=== PATIENT | female | born 1990 | race Caucasian/White ===

== ENCOUNTER 2017-06-13 15:58 | Emergency (ER) | payer OTHER ==
[2017-06-13 16:06] VITALS: BP 142/95; PULSE 89; TEMP 98.9; BMI 36.9
--- NOTE | 2017-06-13 16:45 | PDOC ---
History of Present Illness - General Chief Complaint: Vaginal Bleeding Stated Complaint: BLEEDING (8 WKS ) Time Seen by Provider: 06/13/17 16:43 History Source: Patient Exam Limitations: No Limitations - History of Present Illness Initial Comments: 06/13/17 17:53 Pt. is a 27 y/o female , who presents to the ED with one day of vaginal bleeding. LMP reported to be 03/21/17. Follows with Elise Oleary. Pt. states that she noticed the blood last night and it continued into this morning. Also admits to cramps and lower abdominal pain. She states that the blood is dark brown in color and is similar to when she had her miscarriage last July at 12 weeks. She is sexually active with one partner. Admits to vaginal bleeding, frequency, urgency. Denies fevers, chills, fatigue, nausea, vomiting, diarrhea, constipation, hematuria. Past History - Travel Traveled outside of the country in the last 30 days: No Close contact w/someone who was outside of country & ill: No - Past Medical History Allergies/Adverse Reactions: Allergies Allergy/AdvReac Type Severity Reaction Status Date / Time No Known Allergies Allergy Verified 06/13/17 16:06 Home Medications: Ambulatory Orders Multivitamin/Iron/Folic Acid [Daily Vitamin Formula-Iron Tab] 1 each PO DAILY # 30 tablet 07/29/16 Nitrofurantoin Monohyd/M-Cryst [Macrobid -] 100 mg PO BID #20 capsule 06/13/17 Anemia: No Asthma: No Cancer: No Cardiac Disorders: No CVA: No COPD: No CHF: No Dementia: No Diabetes: No GI Disorders: No Disorders: No HTN: No Hypercholesterolemia: No Liver Disease: No Seizures: No Thyroid Disease: No Other medical history: denies - Surgical History Abdominal Surgery: No Appendectomy: No Cardiac Surgery: No Cholecystectomy: Yes Lung Surgery: No Neurologic Surgery: No Orthopedic Surgery: No - Reproductive History (#): 4 Para: 3 Cervical CA: No Dysfunctional Uterine Bleeding: No Ectopic : No Endometrial CA: No Polycystic Ovaries: No Therapeutic (s) & number: No Tubal Ligation: No Spontaneous : 0 - Suicide/Smoking/Psychosocial Hx Smoking Status: No Smoking History: Never smoked Have you smoked in the past 12 months: No Number of Cigarettes Smoked Daily: 0 Information on smoking cessation initiated: No Hx Alcohol Use: No Drug/Substance Use Hx: No Substance Use Type: None Hx Substance Use Treatment: No Review of Systems - Review of Systems Able to Perform ROS?: Yes Is the patient limited Vietnamese proficient: No Constitutional: No: Chills, Fever, Malaise, Weakness Respiratory: No: Cough, Shortness of Breath, Wheezing Cardiac (ROS): Yes: Syncope. No: Chest Pain, Edema, Lightheadedness, Palpitations ABD/GI: Yes: Abdominal cramping. No: Constipated, Nausea, Vomiting : Yes: Dysuria, Frequency, Urgency, Other (Vaginal bleeding) Musculoskeletal: No: Back Pain, Joint Pain, Muscle Pain, Muscle Weakness Integumentary: No: Bruising, Erythema, Pruritus, Rash Neurological: No: Headache, Numbness, Paresthesia, Weakness, Dizziness Psychiatric: No: Anxiety, Depression, Sleep Pattern Change Endocrine: No: Excessive Sweating, Flushing, Intolerance to Cold, Intolerance to Heat Hematologic/Lymphatic: No: Anemia, Blood Clots, Easy Bleeding All Other Systems: Reviewed and Negative *Physical Exam - Vital Signs Last Vital Signs Temp Pulse Resp BP Pulse Ox 98.9 F 89 18 142/95 100 06/13/17 16:04 06/13/17 16:04 06/13/17 16:04 06/13/17 16:04 06/13/17 16:04 - Physical Exam General Appearance: Yes: Nourished, Appropriately Dressed. No: Apparent Distress (Sitting on exam bed breathing easily. AAOx3) HEENT: positive: EOMI, BESSY, Normal ENT Inspection, Normal Voice, Symmetrical, TMs Normal, Pharynx Normal Neck: positive: Trachea midline, Supple. negative: Tender, Rigid Respiratory/Chest: positive: Lungs Clear, Normal Breath Sounds. negative: Chest Tender, Respiratory Distress, Accessory Muscle Use Cardiovascular: positive: Regular Rhythm, Regular Rate, S1, S2 (present). negative: Edema, Murmur Female Pelvic Exam: positive: normal external exam, vaginal bleeding (Bleeding in the vault and ). negative: cervical os closed (cervical os is open with passing of blood clots present on exam.), CMT, adnexal tenderness Gastrointestinal/Abdominal: positive: Normal Bowel Sounds, Tender (TTP of the LLQ and RLQ), Flat, Soft. negative: Organomegaly, Distended Extremity: positive: Normal Capillary Refill, Normal Inspection, Normal Range of Motion Integumentary: positive: Normal Color, Dry, Warm Neurologic: positive: ash collector II-XII NML intact, Fully Oriented, Alert, Normal Mood/ Affect, Normal Response, Motor Strength 12/24 ED Treatment Course - LABORATORY CBC & Chemistry Diagram: 06/13/17 17:18 06/13/17 17:18 Medical Decision Making - Medical Decision Making 06/13/17 17:54 Pt. is a 27 y/o female , currently 8-12 weeks based on LMP who presents to the ED c/o vaginal bleeding x1 day. Based on exam most likely DDx is spontaneous as the cervical os is open and passing clots at this time. Explained to pt. exam findings and how she is most likely having a miscarriage. Other DDx include UTI, hematuria. Pt is denying pain at this time. Pt is concerned about her RBC count as she needed a blood transfusion following her last miscarriage 1. CBC, CMP, Type and Screen, Beta Hcg UA, UC 2. Transvaginal US 3. Re-evaluate 06/13/17 18:23 RBC's with normal limits. Hemoglobin of 13. UA shows gross hematuria with a WBC count of over 100. Pt. with UTI as well as vaginal bleeding and will need treatment. 06/13/17 19:00 Pt. is currently in US. Sign out given to ELBA Chow, waiting for US report and dispo. *DC/Admit/Observation/Transfer Diagnosis at time of Disposition: Incomplete miscarriage UTI (urinary tract infection) Qualifiers: Urinary tract infection type: acute cystitis Hematuria presence: with hematuria Qualified Code(s): N30.01 - Acute cystitis with hematuria - Discharge Dispostion Disposition: HOME - Prescriptions Prescriptions: Nitrofurantoin Monohyd/M-Cryst [Macrobid -] 100 mg PO BID #20 capsule - Referrals Referrals: Raj Rehman MD [Staff Physician] - Call tomorrow Jessica Kramer [Primary Care Provider] - - Patient Instructions Printed Discharge Instructions: DI for Urinary Tract Infection (UTI) Additional Instructions: drink plenty of fluids. take macrobid as ordered. your beta hcg level was 7609. you need to repeat this in 2 days. return immediately to the emergency room if you are soaking through 2 pads/ hour, severe abdominal pain fever.
[2017-06-13 17:31] LABS: BASOPHIL 0.4 % (0-2.0); EOSINOPHIL 0.8 % (0-4.5); MCH 29.1 pg (25.7-33.7); MCHC 33.6 g/dl (32.0-36.0); MEAN CELL VOLUME 86.7 fl (80-96); MEAN PLT VOLUME 10.7 fl (7.5-11.1); NEUTROPHILS 72.2 % (42.8-82.8); PLATELET COUNT 186 K/MM3 (134-434); RDW 13.9 % (11.6-15.6); WHITE BLOOD COUNT 11.4 K/mm3 (4.0-10.0)
[2017-06-13 17:34] LABS: URINE APPEARANCE CLOUDY; URINE BILIRUBIN NEGATIVE (NEGATIVE); URINE BLOOD 3+ (NEGATIVE); URINE COLOR YELLOW; URINE GLUCOSE (UA) NEGATIVE (NEGATIVE); URINE KETONE NEGATIVE (NEGATIVE); URINE NITRITE NEGATIVE (NEGATIVE); URINE UROBILINOGEN NEGATIVE mg/dL (0.2-1.0)
[2017-06-13 17:37] LABS: URINE PROTEIN 1+ (NEGATIVE)
[2017-06-13 17:39] LABS: URINE MUCUS RARE; URINE RBC 1506 /hpf (0-3); URINE WBC 175 /hpf (3-5)
[2017-06-13 17:56] LABS: ALBUMIN 3.9 g/dl (3.4-5.0); ANION GAP 7 (8-16); BILIRUBIN,TOTAL 0.2 mg/dL (0.2-1.0); CALCIUM 9.2 mg/dL (8.5-10.1); CO2 28 mmol/L (21-32); CREATININE 0.6 mg/dL (0.55-1.02); GLUCOSE,RANDOM 102 mg/dL (74-106); SGOT/AST 11 U/L (15-37); SGPT/ALT 20 U/L (12-78); TOT PROT 7.5 g/dl (6.4-8.2)
[2017-06-13 18:11] LABS: ALK PHOS 79 U/L (45-117)
[2017-06-13] MEDS ORDERED: SODIUM CHLORIDE 1,000 ML IV STA (19:30)
--- NOTE | 2017-06-13 19:40 | PDOC ---
*Physical Exam - Vital Signs Last Vital Signs Temp Pulse Resp BP Pulse Ox 98.9 F 89 18 142/95 100 06/13/17 16:04 06/13/17 16:04 06/13/17 16:04 06/13/17 16:04 06/13/17 16:04 ED Treatment Course - LABORATORY CBC & Chemistry Diagram: 06/13/17 17:18 06/13/17 17:18 - ADDITIONAL ORDERS Additional order review: Laboratory Results 06/13/17 06/13/17 06/13/17 17:18 17:18 17:18 Sodium 137 Potassium 4.2 Chloride 102 Carbon Dioxide 28 D Anion Gap 7 L BUN 9 D Creatinine 0.6 Creat Clearance w eGFR > 60 Random Glucose 102 D Calcium 9.2 Total Bilirubin 0.2 D AST 11 L D ALT 20 Alkaline Phosphatase 79 D Total Protein 7.5 D Albumin 3.9 D Beta HCG, Quant 7609.1 Urine Color Yellow Urine Appearance Cloudy Urine pH 6.0 Urine Protein 1+ H Urine Glucose (UA) Negative Urine Ketones Negative Urine Blood 3+ H Urine Nitrite Negative Urine Bilirubin Negative Urine Urobilinogen Negative Urine RBC 1506 Urine WBC 175 Ur Epithelial Cells Moderate Urine Mucus Rare Blood Type O POSITIVE Antibody Screen Negative 06/13/17 17:18 RBC 4.72 D MCV 86.7 MCHC 33.6 RDW 13.9 MPV 10.7 Neutrophils % 72.2 Lymphocytes % 20.1 Monocytes % 6.5 Eosinophils % 0.8 Basophils % 0.4 Medical Decision Making - Medical Decision Making 06/13/17 19:39 pending u/s. likely miscarriage 06/13/17 19:44 U/S + pole with no HRT. speedy hcg ~7000s . will d/c home with strict return precautions. *DC/Admit/Observation/Transfer Diagnosis at time of Disposition: Incomplete miscarriage UTI (urinary tract infection) Qualifiers: Urinary tract infection type: acute cystitis Hematuria presence: with hematuria Qualified Code(s): N30.01 - Acute cystitis with hematuria; N30.01 - Acute cystitis with hematuria - Discharge Dispostion Disposition: HOME - Prescriptions Prescriptions: Nitrofurantoin Monohyd/M-Cryst [Macrobid -] 100 mg PO BID #20 capsule - Referrals Referrals: Jessica Kramer [Primary Care Provider] - Raj Rehman MD [Staff Physician] - Call tomorrow - Patient Instructions Printed Discharge Instructions: DI for Urinary Tract Infection (UTI) Additional Instructions: drink plenty of fluids. take macrobid as ordered. your beta hcg level was 7609. you need to repeat this in 2 days. return immediately to the emergency room if you are soaking through 2 pads/ hour, severe abdominal pain fever.
[2017-06-13 22:34] LABS: URINE LEUK ESTERASE TRACE (NEGATIVE)
== END 2017-06-13 21:03 | disposition home or self-care (01) ==
LOC: JER 15:58
PROC: 3E0337Z Introduction of Electrolytic and Water Balance Substance into Peripheral Vein, Percutaneous Approach (ICD-10-PCS; principal; 2017-06-13)
DX: O26.891 Other specified pregnancy related conditions, first trimester (principal); O03.4 Incomplete spontaneous abortion without complication; O23.11 Infections of bladder in pregnancy, first trimester; N30.91 Cystitis, unspecified with hematuria; Z3A.08 8 weeks gestation of pregnancy
CPT/HCPCS: 36415; 76817-TC; 80053; 81003; 81015; 84702; 85025; 86850; 86900; 86901; 87086; 96360; 99283-25

== ENCOUNTER 2017-06-15 07:01 | Day surgery (SDC) | payer OTHER ==
[2017-06-15 07:12] VITALS: BMI 36.9
[2017-06-15] MEDS ORDERED: SODIUM CHLORIDE 1,000 ML IV STA (07:45)
--- NOTE | 2017-06-15 07:57 | PDOC ---
History of Present Illness <BuffyhenryFarzanaLove - Last Filed: 06/15/17 10:46> - General History Source: Patient - History of Present Illness Timing/Duration: reports: constant Quality: reports: severe <JonathanDedeLeilaMinda Last Filed: 06/15/17 11:12> - General Chief Complaint: Vaginal Bleeding Stated Complaint: REVISIT-VAGINAL BLEEDING Time Seen by Provider: 06/15/17 07:38 Past History <BuffyhenryFarzanaLove - Last Filed: 06/15/17 10:46> - Past Medical History Anemia: No Asthma: No Cancer: No Cardiac Disorders: No CVA: No COPD: No CHF: No Dementia: No Diabetes: No GI Disorders: No Disorders: No HTN: No Hypercholesterolemia: No Liver Disease: No Seizures: No Thyroid Disease: No - Surgical History Abdominal Surgery: No Appendectomy: No Cardiac Surgery: No Cholecystectomy: Yes Lung Surgery: No Neurologic Surgery: No Orthopedic Surgery: No - Reproductive History (#): 4 Para: 3 Cervical CA: No Dysfunctional Uterine Bleeding: No Ectopic : No Endometrial CA: No Polycystic Ovaries: No Therapeutic (s) & number: No Tubal Ligation: No Spontaneous : 0 - Suicide/Smoking/Psychosocial Hx Smoking Status: No Smoking History: Never smoked Have you smoked in the past 12 months: No Number of Cigarettes Smoked Daily: 0 Hx Alcohol Use: No Drug/Substance Use Hx: No Substance Use Type: None Hx Substance Use Treatment: No <Roselle ParkDedeGlen Filed: 06/15/17 11:12> - Past Medical History Allergies/Adverse Reactions: Allergies Allergy/AdvReac Type Severity Reaction Status Date / Time No Known Allergies Allergy Verified 06/15/17 07:12 Home Medications: Ambulatory Orders Multivitamin/Iron/Folic Acid [Daily Vitamin Formula-Iron Tab] 1 each PO DAILY # 30 tablet 07/29/16 Nitrofurantoin Monohyd/M-Cryst [Macrobid -] 100 mg PO BID #20 capsule 06/13/17 Review of Systems - Review of Systems Respiratory: No: Shortness of Breath Cardiac (ROS): Yes: Lightheadedness. No: Chest Pain, Palpitations, Syncope ABD/GI: Yes: Abdominal cramping. No: Nausea, Vomiting <Jarvis CastilloMinda Filed: 06/15/17 11:12> *Physical Exam - Vital Signs Last Vital Signs Temp Pulse Resp BP Pulse Ox 99.0 F 100 H 18 117/80 100 06/15/17 07:09 06/15/17 08:12 06/15/17 08:12 06/15/17 08:12 06/15/17 08:12 <Love Olea - Last Filed: 06/15/17 10:46> - Vital Signs Last Vital Signs Temp Pulse Resp BP Pulse Ox 99.0 F 100 H 20 148/83 99 06/15/17 07:09 06/15/17 07:09 06/15/17 07:09 06/15/17 07:09 06/15/17 07:09 - Physical Exam General Appearance: Yes: Appropriately Dressed, Moderate Distress HEENT: positive: Normal Voice Neck: positive: Supple Respiratory/Chest: negative: Respiratory Distress Female Pelvic Exam: positive: vaginal bleeding (significant brisk vag bleeding w / large clots, unable to assess OS) Gastrointestinal/Abdominal: positive: Normal Bowel Sounds, Tender (minimal lower abd ttp), Soft. negative: Distended Extremity: positive: Normal Inspection Integumentary: positive: Dry, Warm Neurologic: positive: Fully Oriented, Alert, Normal Mood/Affect <Candi Castillo - Last Filed: 06/15/17 11:12> ED Treatment Course - LABORATORY CBC & Chemistry Diagram: 06/15/17 08:03 06/15/17 08:03 - ADDITIONAL ORDERS Additional order review: Laboratory Results 06/15/17 06/15/17 06/15/17 08:03 08:03 08:03 PT with INR 11.70 INR 1.04 Sodium 138 Potassium 3.9 Chloride 101 Carbon Dioxide 26 Anion Gap 11 BUN 7 D Creatinine 0.6 Creat Clearance w eGFR > 60 Random Glucose 119 H Calcium 8.6 Total Bilirubin 0.4 D AST 7 L D ALT 16 Alkaline Phosphatase 60 D Total Protein 6.4 Albumin 3.5 Beta HCG, Quant 3498.0 Blood Type O POSITIVE Antibody Screen Negative 06/15/17 08:03 RBC 4.25 MCV 86.1 MCHC 34.2 RDW 14.0 MPV 10.7 Neutrophils % 80.2 Lymphocytes % 13.7 D Monocytes % 5.0 Eosinophils % 0.9 Basophils % 0.2 - Medications Given in the ED: ED Medications Discontinued Medications Generic Name Dose Route Start Last Admin Trade Name Manda PRN Reason Stop Dose Admin Sodium Chloride 1,000 mls @ 1,000 mls/hr 06/15/17 07:45 06/15/17 08:15 Normal Saline - IV 06/15/17 08:44 1,000 mls/hr ASDIR STA Administration <Love Olea - Last Filed: 06/15/17 10:46> - LABORATORY CBC & Chemistry Diagram: 06/15/17 10:43 06/15/17 08:03 <Candi Castillo - Last Filed: 06/15/17 11:12> Medical Decision Making - Medical Decision Making 06/15/17 10:[address] Lang at 8:14am Second page at 8:48am Third Page at 9:23am. Called L&D [phone] at 9:28am - state that Precious is on vacation Paged Dr. Walker at 9:31am. Dr. Tsang returned the call and wants us to speak with Dr. Walker directly Paged Dr. Walker on cell at 10:00am. Awaiting call back. Dr. Walker called back at 10:35am. States that Dr. Rehman is consumer relations complaint clerk. 06/15/17 10:46 Dr. Rehman was called on cell (office number is out of service). Connected and spoke with DONALDO Castillo <Love Olea - Last Filed: 06/15/17 10:46> - Medical Decision Making 06/15/17 07:46 27 yo F, , ~ 8 weeks by dates, here with significant vaginal bleeding w/ clots or abdominal cramping. Patient states 2 days ago she was seen in the ED w / vaginal spotting, beta was over 7000 with ultrasound read as intrauterine sac without pole or yolk sac and no double decidual sign, raising the possibility of a pseudocyst, repeat beta recommended. Pt also on macrobid fo uti w/ >10K CFU on ucx. Patient states since seen in ED, bleeding has significantly worsened and now feels weak and dizzy. No syncope. States the last time she suffered a miscarriage, she hemorrhaged so much that she needed a blood transfusion. Spon AB Pt tachy to 100 and hemorrhaging in ED w/ multiple large clots, unable to assess os given degree of bleeding Placed on monitor w/ IV placed -IVF -labs including T&S -FINISH GRINDER c/s for possible D&C 06/15/17 08:34 06/15/17 08:34 06/15/17 08:55 06/15/17 09:47 Beta >3K today, down from >7K 2 days ago, c/w spon AB. Told Dr Lang is on the call list is actually on vacation. Will page Dr Walker at this time. Pt remains stable. Initial HGB 12, serial CBC in progress while in ED. 0+ on T&S 06/15/17 09:48 06/15/17 10:[address] Tsang who gave me Dr. Walker's cell number. I contacted Dr. Walker and l/m for MD to call back. 06/15/17 10:03 Dr Pearl called L&D and was told by unit coordinator that Dr Walker is currently performing a csection. MD left message for Dr Walker to contact ED tal 06/15/17 10:34 Dr Walker called back and told me that Dr Rehman is actually consumer relations complaint clerk. Will contact at this time 06/15/17 10:48 Case d/w Dr Rehman, states he will call me back with plan 06/15/17 11:01 Pt to go to the OR for D&C this am 06/15/17 11:11 OR team in ED to transfer pt upstairs. Of note, Hgb stable on rpt labs <Candi Castillo - Last Filed: 06/15/17 11:12> *DC/Admit/Observation/Transfer <Love Olea - Last Filed: 06/15/17 10:46> - Discharge Dispostion Admit: Yes <Candi Castillo - Last Filed: 06/15/17 11:12> Diagnosis at time of Disposition: Spontaneous UTI (urinary tract infection) Qualifiers: Urinary tract infection type: acute cystitis Hematuria presence: without hematuria Qualified Code(s): N30.00 - Acute cystitis without hematuria - Discharge Dispostion Condition at time of disposition: Fair - Referrals Referrals: Jessica Kramer [Primary Care Provider] -
[2017-06-15 08:21] LABS: BASO % 0.2 % (0-2.0); EOS % 0.9 % (0-4.5); MCH 29.5 pg (25.7-33.7); MCHC 34.2 g/dl (32.0-36.0); MEAN CELL VOLUME 86.1 fl (80-96); MEAN PLT VOLUME 10.7 fl (7.5-11.1); NEUT % 80.2 % (42.8-82.8); PLATELET COUNT 164 K/MM3 (134-434); WHITE BLOOD COUNT 9.6 K/mm3 (4.0-10.0)
[2017-06-15 08:41] LABS: ALBUMIN 3.5 g/dl (3.4-5.0); ANION GAP 11 (8-16); CALCIUM 8.6 mg/dL (8.5-10.1); CO2 26 mmol/L (21-32); CREATININE 0.6 mg/dL (0.55-1.02); GLUCOSE,RANDOM 119 mg/dL (74-106); INR 1.04 (0.82-1.09); PROTHROMBIN TIME (PATIENT) 11.7 SEC (9.98-11.88); SGOT/AST 7 U/L (15-37); SGPT/ALT 16 U/L (12-78); TOT PROT 6.4 g/dl (6.4-8.2)
[2017-06-15 08:57] LABS: ALK PHOS 60 U/L (45-117); BILIRUBIN,TOTAL 0.4 mg/dL (0.2-1.0)
[2017-06-15 10:08] LABS: URINE APPEARANCE CLOUDY; URINE BILIRUBIN NEGATIVE (NEGATIVE); URINE BLOOD 3+ (NEGATIVE); URINE COLOR RED; URINE GLUCOSE (UA) 1+ (NEGATIVE); URINE KETONE NEGATIVE (NEGATIVE); URINE NITRITE POSITIVE (NEGATIVE); URINE UROBILINOGEN NEGATIVE mg/dL (0.2-1.0)
[2017-06-15 10:09] LABS: URINE PROTEIN 3+ (NEGATIVE)
[2017-06-15] MEDS ORDERED: NITROFURANTOIN MACROCRYSTAL 50 MG CAPSULE (FP) PO SCH (10:30)
[2017-06-15] MEDS ORDERED: NITROFURANTOIN MACROCRYSTAL 50 MG CAPSULE (FP) ONE (10:51)
[2017-06-15 10:55] LABS: BASO % 0.5 % (0-2.0); EOS % 0.3 % (0-4.5); MCH 28.9 pg (25.7-33.7); MCHC 33.6 g/dl (32.0-36.0); MEAN CELL VOLUME 86.1 fl (80-96); MEAN PLT VOLUME 10.7 fl (7.5-11.1); NEUT % 81.3 % (42.8-82.8); PLATELET COUNT 172 K/MM3 (134-434); RDW 13.6 % (11.6-15.6); WHITE BLOOD COUNT 14.3 K/mm3 (4.0-10.0)
[2017-06-15] MEDS ORDERED: MIDAZOLAM HCL 2 MG/2 ML SINGLE DOSE VIAL ONE (11:29)
[2017-06-15] MEDS ORDERED: PROPOFOL 20 ML ONE (11:29)
[2017-06-15] MEDS ORDERED: DEXAMETHASONE SOD PHOSPHATE 4 MG/1 ML VIAL ONE (11:29)
--- NOTE | 2017-06-15 11:51 | HP ---
Admitting History and Physical - Admission Chief Complaint: vaginal bleeding History of Present Illness: 27 y/o with empty gest sac seen 2 days ago with spoting resturn with passing clots, weakness, dizzinees. Pt will have a d n c History Source: Patient Limitations to Obtaining History: No Limitations - Past Medical History TAPE COATER: No: Alzheimer's, CVA, Dementia, Migraine, Multiple Sclerosis, Peripheral Neuropathy, Parkinson's, Seizure, Syncope, TIA, Vertigo, Other Cardiovascular: No: AFIB, Aneurysm, Aortic Insufficiency, Aortic Stenosis, CAD, CHF, Deep Vein Thrombosis, HTN, Hyperlipdemia, MD, Mitral Insufficiency, Mitral Stenosis, Murmur, Pulmonary Hypertension, Other Pulmonary: No: Asthma, Bronchitis, Cancer, COPD, O2 Dependent, Pneumonia, Previously Intubated, Pulmonary Embolus, Pulmonary Fibrosis, Sleep Apnea, Other Gastrointestinal: No: Ascites, Cancer, Constipation, Crohn's Disease, Diverticulitis, Diverticulosis, Esophageal Varices, Gastritis, GERD, GI Bleed, Hemorrhoids, Hiatal Hernia, Inflamatory Bowel Disease, Irritable Bowel Disease, Pancreatitis, Peptic Ulcer Disease, Ulcerative Colitis, Other Hepatobiliary: No: Cirrhosis, Cholelithiasis, Cholecystitis, Choledocholithiasis , Hepatitis A, Hepatitis B, Hepatitis C, Other Renal/: No: Renal Failure, Renal Inusuff, BPH, Cancer, Hematuria, Hemodialysis , Neurogenic Bladder, Renal Calculi, UTI, Other Reproductive: No: Ectopic , Endometriosis, Fibroids, PID, Polycystic Ovary Syndrome, Postmenopausal, Other ...LMP: 03/21/17 ...: Yes Heme/Onc: Yes: Anemia Infectious Disease: No: AIDS, C-Diff, Herpes Zoster, HIV, MRSA, STD's, Tuberculosis, VREF, Other Psych: No: Addictions, Anxiety, Bipolar, Depression, Panic, Psychosis, Schizophrenia, Other Musculoskeletal: No: Bursitis, Chronic low back pain, Hemiparesis, Hemiplegia, Osteoarthritis, Paraplegia, Other Rheumatology: No: Fibromyalgia, Gout, Lupus, Rheumatoid Arthritis, Sarcoidosis, Vasculitis, Other ENT: No: Allergic Rhinitis, Sinusitis, Other Endocrine: No: Scott's Disease, Brittany's Disease, Diabetes Insipidus, Diabetes Mellitus, Hyperparathyroidism, Hyperthyroidism, Hypothyroidism, Osteopenia, SIADH, Other Dermatology: No: Basal Cell, Cellulitis, Eczema, Melanoma, Psoriasis, Squamous Cell, Other - Past Surgical History Past Surgical History: No: None, AAA Repair, AICD, Amputation, Appendectomy, Arthrosocopy, AV Fistula/Graft, Bariatric Surgery, Breast Biopsy, Bypass, CABG, Carotid Endarterectomy, Cataract Removal, Cholecystectomy, Colectomy, Colonoscopy, Colostomy, Craniotomy, , Cystectomy, Hernia Repair, Hysterectomy, Ileal Conduit, Ileosotomy, Joint Replacement, Kidney Transplant, Laminectomy, Liver Transplant, Mastectomy, Nephrectomy, Oopherectomy, Orchiectomy, Permanent Pacemaker, Prostatectomy, Splenectomy, Stent, Thoracotomy , TURP, Tonsillectomy, Tubal Ligation, Upper Endoscopy, Valve Replacement, Vasectomy, Vein Stripping/Ligation - Advance Directives Advance Directives: No: Living Will, Health Care Proxy, DNR, Organ Donor, Tissue Donor, MOLST - Smoking History Smoking history: Never smoked Have you smoked in the past 12 months: No Aproximately how many cigarettes per day: 0 - Alcohol/Substance Use Hx Alcohol Use: No History of Substance Use: denies: None, Cocaine, Heroin, Marijuana, Prescription , Tranquilizers - Social History Usual Living Arrangement: No: Alone, With Spouse, With Parent, With Significant Other, With Child, Assisted Living, [facility], Other History of Recent Travel: No Home Medications - Allergies Allergies/Adverse Reactions: Allergies Allergy/AdvReac Type Severity Reaction Status Date / Time No Known Allergies Allergy Verified 06/15/17 07:12 - Home Medications Home Medications: Ambulatory Orders Multivitamin/Iron/Folic Acid [Daily Vitamin Formula-Iron Tab] 1 each PO DAILY # 30 tablet 07/29/16 Nitrofurantoin Monohyd/M-Cryst [Macrobid -] 100 mg PO BID #20 capsule 06/13/17 Review of Systems - Review of Systems Constitutional: reports: No Symptoms Eyes: reports: No Symptoms HENT: reports: No Symptoms Neck: reports: No Symptoms Cardiovascular: reports: No Symptoms Respiratory: reports: No Symptoms Gastrointestinal: reports: No Symptoms Genitourinary: reports: No Symptoms Breasts: reports: No Symptoms Reported Musculoskeletal: reports: No Symptoms Integumentary: reports: No Symptoms Neurological: reports: No Symptoms Endocrine: reports: No Symptoms Hematology/Lymphatic: reports: No Symptoms Physical Examination Vital Signs: Vital Signs Temperature 99.0 F 06/15/17 07:09 Pulse Rate 90 06/15/17 10:25 Respiratory Rate 20 06/15/17 10:25 Blood Pressure 111/82 06/15/17 10:25 O2 Sat by Pulse Oximetry (%) 100 06/15/17 10:25 Constitutional: Yes: Well Nourished Eyes: Yes: WNL HENT: Yes: WNL Neck: Yes: WNL Cardiovascular: Yes: WNL Respiratory: Yes: WNL ...Rectal Exam: Yes: WNL Renal/: Yes: WNL Breast(s): Yes: WNL (vaginal bleeding) Labs: CBC, BMP 06/15/17 10:43 06/15/17 08:03 Assessment/Plan as titi wen
[2017-06-15] MEDS ORDERED: IBUPROFEN 400 MG TABLET (FP) PO PRN (11:53)
[2017-06-15] MEDS ORDERED: ONDANSETRON 4 MG/2 ML VIAL IVPUSH PRN (11:53)
[2017-06-15] MEDS ORDERED: ACETAMINOPHEN 325 MG TABLET (FP) PO PRN (11:53)
[2017-06-15] MEDS ORDERED: LACTATED RINGERS SOLUTION 1,000 ML IV SCH (12:00)
[2017-06-15] MEDS ORDERED: oxyCODONE HCL 5 MG TABLET PO PRN (12:17)
[2017-06-15 12:44] LABS: URINE RBC 6237 /hpf (0-3); URINE WBC 19 /hpf (3-5)
[2017-06-15 13:59] VITALS: TEMP 98.9
[2017-06-15 15:28] VITALS: BP 102/52; PULSE 87
[2017-06-15 17:30] LABS: URINE LEUK ESTERASE Negative (NEGATIVE)
--- NOTE | 2017-06-20 17:23 | PATH ---
Surgical Pathology Report Patient Name: [facility]. Rec. #: [id number] /Age/Gender: 1990 (Age: 27) / F Account: [id number] Location: AMBULATORY SURG Taken: 06/15/2017 Received: 06/17/2017 Reported: 06/20/2017 Physicians: Raj Rehman M.D. Specimen(s) Received A: PRODUCTS OF CONCEPTION B: CONTENTS OF CONCEPTION, BLOOD CLOTS, AND FETUS Clinical History Spontaneous , POC Final Diagnosis A. CONTENTS OF CONCEPTION, DILATATION AND CURETTAGE: GESTATIONAL ENDOMETRIUM. B. CONTENTS OF CONCEPTION, BLOOD CLOTS, AND FETUS, DILATATION AND CURETTAGE: IMMATURE CHORIONIC VILLI AND DECIDUA CONSISTENT WITH PRODUCTS OF CONCEPTION. Electronically Signed Joseline Sidhu M.D. Gross Description A. Received in formalin labelled "contents of conception" is roughly 3 x 3 x 0.7 cm aggregate of red tissue fragments. No somatic tissue or hydropic areas are grossly identified. No definite chorionic villi are identified. A sales representative girls' apparel portion is submitted in one cassette. B. Received in formalin labelled "large clots and fetus" is a 6 x 4.2 x 3.3 cm, 48 gram portion of pink tissue grossly suggestive of a gestational sac. Extensive clotted blood is present. No definite somatic tissue is grossly identified. Also present within the specimen container is a 10 x 10 x 5 cm aggregate of clotted blood. Air Brake Man sections are submitted in 4 cassettes. [facility]/06/17/2017 [facility]/06/17/2017
--- NOTE | 2017-08-09 16:24 | OP ---
DATE OF OPERATION: HISTORY OF PRESENT ILLNESS: Patient comes with incomplete and bleeding. POSTOPERATIVE DIAGNOSIS: Patient comes with incomplete and bleeding. PROCEDURE: Suction dilatation and curettage. OPERATING SURGEON: Andi Rehman MD OBSTETRICS/GYNECOLOGY NURSE: None. ANESTHESIA: MAC anesthesia. SPECIMEN: Products of conception. DISPOSITION: To recovery room in stable, alert condition. DESCRIPTION OF PROCEDURE: Patient was consented prior to entering the operating suite. The patient was put on the table in the dorsal lithotomy position, prepped and draped in the usual sterile fashion. Speculum was then placed. A 7-Slovak curette was then placed into the dilated cervix. All suctioning was undertaken. Specimen sent to pathology. Sharp curetting was then undertaken. There were no gross specimens identified. The patient was subsequently awoken and sent to recovery room in stable, alert condition and then discharged home once upon stable. ANDI REHMAN M.D. [id number]
== END 2017-06-15 15:42 | disposition home or self-care (01) ==
LOC: JER 07:01 → JASUSAT 11:00
PROVIDERS: ATTEND Obstetrics & Gynecology
PROC: 10D17ZZ Extraction of Products of Conception, Retained, Via Natural or Artificial Opening (ICD-10-PCS; principal; 2017-06-15 12:00)
DX: O03.4 Incomplete spontaneous abortion without complication (principal)
CPT/HCPCS: 36415; 80053; 81003; 81015; 84702; 85025; 85610; 86850; 86900; 86901; 88305-TC; 94760; 99284-25

== ENCOUNTER 2018-07-15 04:15 | Inpatient (IN) | payer OTHER ==
[2018-07-15] MEDS ORDERED: AMPICILLIN SODIUM 2 GM VIAL ONE (04:45)
[2018-07-15] MEDS ORDERED: OXYTOCIN 20 UNITS in 0.9% NS 20 UNIT/1,000 ML INFUS.BAG IV ONE ×2 (05:10→06:18)
[2018-07-15] MEDS ORDERED: BISACODYL 10 MG SUPP.RECT RC PRN (05:23)
[2018-07-15] MEDS ORDERED: IBUPROFEN 600 MG TABLET (FP) PO PRN (05:23)
[2018-07-15] MEDS ORDERED: WITCH HAZEL 50% (TUCKS) 40 PAD/JAR PAD TP PRN (05:23)
[2018-07-15] MEDS ORDERED: ACETAMINOPHEN 325 MG TABLET (FP) PO PRN (05:23)
[2018-07-15] MEDS ORDERED: METHYLERGONOVINE MALEATE 0.2 MG/1 ML AMP IM PRN (05:23)
[2018-07-15] MEDS ORDERED: BENZOCAINE 28 GM HEMORRHOIDAL OINTMENT TP PRN (05:23)
[2018-07-15] MEDS ORDERED: BENZOCAINE 20% 57 GM BOTTLE TP PRN (05:23)
--- NOTE | 2018-07-15 05:29 | HP ---
Past Medical History - Admission Chief Complaint: Labor pain History of Present Illness: 28 yo @ 39 weeks gestation, EDC 07/21/18, admitted for labor pain. Upon admission she was 7-8cm dilated. History Source: Patient Limitations to Obtaining History: No Limitations - Past Medical History ...: 6 ...Para: 3 ...Term: 3 ...Spon : 2 ...LMP: 10/16/17 ... Weeks Gestation by Dates: 39.0 ...EDC by Dates: 07/21/18 ...EDC by Sono: 07/23/18 Heme/Onc: Yes: Anemia - Past Surgical History Past Surgical History: Yes: Cholecystectomy Hx Myomectomy: No Hx Transabdominal Cerclage: No - Smoking History Smoking history: Never smoked Have you smoked in the past 12 months: No Aproximately how many cigarettes per day: 0 - Alcohol/Substance Use Hx Alcohol Use: No - Social History History of Recent Travel: No Home Medications - Allergies Allergies/Adverse Reactions: Allergies Allergy/AdvReac Type Severity Reaction Status Date / Time No Known Allergies Allergy Verified 06/15/17 07:12 - Home Medications Home Medications: Ambulatory Orders Multivitamin/Iron/Folic Acid [Daily Vitamin Formula-Iron Tab] 1 each PO DAILY # 30 tablet 07/29/16 Nitrofurantoin Monohyd/M-Cryst [Macrobid -] 100 mg PO BID #20 capsule 06/13/17 Ibuprofen [Motrin -] 600 mg PO TID #21 tablet 06/15/17 Family Disease History - Family Disease History Family History: Unremarkable Review of Systems - Review of Systems Constitutional: reports: No Symptoms Eyes: reports: No Symptoms HENT: reports: No Symptoms Neck: reports: No Symptoms Cardiovascular: reports: No Symptoms Respiratory: reports: No Symptoms Gastrointestinal: reports: No Symptoms Genitourinary: reports: Pain Breasts: reports: No Symptoms Reported Musculoskeletal: reports: No Symptoms Integumentary: reports: No Symptoms Neurological: reports: No Symptoms Endocrine: reports: No Symptoms Hematology/Lymphatic: reports: No Symptoms Psychiatric: reports: No Symptoms Pain Intensity: 8 Physical Exam - Maternity Vital Signs: Vital Signs Temperature 98.4 F 07/15/18 04:46 Pulse Rate 103 H 07/15/18 04:46 Respiratory Rate 18 07/15/18 04:46 Blood Pressure 157/95 07/15/18 04:46 O2 Sat by Pulse Oximetry (%) Constitutional: Yes: Well Nourished Eyes: Yes: Conjunctiva Clear HENT: Yes: Atraumatic Neck: Yes: Supple Cardiovascular: Yes: Regular Rate and Rhythm Lungs: Clear to auscultation - Abdominal Exam/OB Number of Fetuses: Single Presentation: Vertex Contractions: Yes Regularity: Regular Intensity: Mod/Strong - Vaginal Exam/OB Dilatation (cm): 7 Station: -1 - Physical Exam ...Motor Strength: WNL Psychiatric: Yes: Alert, Oriented Problem List - Problems (1) Pain during labor Code(s): O99.89 - OTH DISEASES AND CONDITIONS COMPL PREG/CHLDBRTH; R52 - PAIN, UNSPECIFIED (2) Status post normal vaginal delivery Code(s): OPZ0817 - Assessment/Plan Active labor Admit to L&D Analgesia as needed Anticipate
[2018-07-15] MEDS ORDERED: DEXTROSE 5%-LACTATED RINGERS 1,000 ML IV SCH (05:30)
[2018-07-15] MEDS ORDERED: OXYTOCIN 20 UNITS in 0.9% NS 20 UNIT/1,000 ML INFUS.BAG IV SCH (05:30)
--- NOTE | 2018-07-15 05:31 | PN ---
Delivery - Delivery Vaginal Delivery: Spontaneous Type of Anesthesia: None Episiotomy/Laceration: None EBL (cc): 300 Remarks - Remarks Remarks: Normal spontaneous vaginal delivery of a live girl over intact perineum. Nose / Oropharynx suctioned @ perineum. Cord clamped and cut. Baby handed to nurse. Placenta expelled spontaneously intact. Mother in stable condition.
[2018-07-15 05:54] LABS: BASO % 0.2 % (0-2.0); EOS % 0.6 % (0-4.5); HEMATOCRIT 36.6 % (32.4-45.2); HEMOGLOBIN 11.8 GM/dL (10.7-15.3); LYMPH % 18.3 % (8-40); MCH 28.4 pg (25.7-33.7); MCHC 32.2 g/dl (32.0-36.0); MEAN CELL VOLUME 88.2 fl (80-96); MEAN PLT VOLUME 12.7 fl (7.5-11.1); MONO % 7.6 % (3.8-10.2); NEUT % 73.3 % (42.8-82.8); PLATELET COUNT 138 K/MM3 (134-434); RBC 4.15 M/mm3 (3.60-5.2); RDW 13.6 % (11.6-15.6); WHITE BLOOD COUNT 11.7 K/mm3 (4.0-10.0)
[2018-07-15 05:56] VITALS: BMI 36.9
[2018-07-15 06:13] LABS: ANION GAP 8 MMOL/L (8-16); BLOOD UREA NITROGEN 13 mg/dL (7-18); CALCIUM 8.8 mg/dL (8.5-10.1); CHLORIDE 103 mmol/L (98-107); CO2 25 mmol/L (21-32); CREATININE 0.6 mg/dL (0.55-1.3); GLUCOSE,RANDOM 98 mg/dL (74-106); SODIUM 136 mmol/L (136-145)
[2018-07-15 06:28] LABS: INR 0.92 (0.83-1.09); PROTHROMBIN TIME (PATIENT) 10.8 SEC (9.7-13.0)
[2018-07-15] MEDS: FERROUS SO4 325 MG TABLET (FP) PO SCH ×3 (08:54→22:00)
[2018-07-15] MEDS: PRENATAL VITAMINS W/ FOLIC ACID TABLET (FP) PO SCH ×2 (08:57→09:00)
[2018-07-15] MEDS ORDERED: DIPHTH,PERTUSS(ACELL),TET 0.5 ML DISP.SYRIN IM ONE (09:31)
[2018-07-16 08:26] LABS: HEMATOCRIT 34.9 % (32.4-45.2); HEMOGLOBIN 11.3 GM/dL (10.7-15.3); MCH 28.5 pg (25.7-33.7); MCHC 32.4 g/dl (32.0-36.0); MEAN PLT VOLUME 12.2 fl (7.5-11.1); PLATELET COUNT 121 K/MM3 (134-434); RBC 3.96 M/mm3 (3.60-5.2); RDW 13.8 % (11.6-15.6); WHITE BLOOD COUNT 9.3 K/mm3 (4.0-10.0)
[2018-07-16] MEDS: PRENATAL VITAMINS W/ FOLIC ACID TABLET (FP) PO SCH (10:00)
[2018-07-16] MEDS: FERROUS SO4 325 MG TABLET (FP) PO SCH ×2 (10:00→22:33)
--- NOTE | 2018-07-16 14:06 | PN ---
Post Progress Note - Subjective Subjective: 28 yo Para 4, status post vaginal delivery, seen and evaluated. Doing well Post Day: 1 Type of Delivery: Vital Signs: Vital Signs Temperature 98.2 F 07/16/18 09:55 Pulse Rate 80 07/16/18 09:55 Respiratory Rate 20 07/16/18 09:55 Blood Pressure 127/83 07/16/18 09:55 O2 Sat by Pulse Oximetry (%) 100 07/15/18 06:30 Breast Exam: Yes: Soft Uterus: Yes: Fundus Firm Abdomen/GI: Yes: Abdomen soft, Tolerating PO Lochia: Yes: Rubra Lochia, amount: Moderate Extremities: Yes: Calves non-tender Perineum: Yes: Intact Activity: Ambulating - Labs Labs: CBC WBC 9.3 K/mm3 (4.0-10.0) 07/16/18 07:00 RBC 3.96 M/mm3 (3.60-5.2) 07/16/18 07:00 Hgb 11.3 GM/dL (10.7-15.3) 07/16/18 07:00 Hct 34.9 % (32.4-45.2) 07/16/18 07:00 MCV 88.0 fl (80-96) 07/16/18 07:00 MCH 28.5 pg (25.7-33.7) 07/16/18 07:00 MCHC 32.4 g/dl (32.0-36.0) 07/16/18 07:00 RDW 13.8 % (11.6-15.6) 07/16/18 07:00 Plt Count 121 K/MM3 (134-434) L 07/16/18 07:00 MPV 12.2 fl (7.5-11.1) H 07/16/18 07:00 Absolute Neuts (auto) 8.6 K/mm3 (1.5-8.0) H 07/15/18 04:55 Neutrophils % 73.3 % (42.8-82.8) 07/15/18 04:55 Lymphocytes % 18.3 % (8-40) D 07/15/18 04:55 Monocytes % 7.6 % (3.8-10.2) 07/15/18 04:55 Eosinophils % 0.6 % (0-4.5) D 07/15/18 04:55 Basophils % 0.2 % (0-2.0) 07/15/18 04:55 Nucleated RBC % 0 % (0-0) 07/15/18 04:55 Problem List - Problems (1) Pain during labor Code(s): O99.89 - OTH DISEASES AND CONDITIONS COMPL PREG/CHLDBRTH; R52 - PAIN, UNSPECIFIED (2) Status post normal vaginal delivery Code(s): TPG1547 - Assessment/Plan Status post vaginal delivery Stable Continue routine care
[2018-07-16] MEDS ORDERED: SENNOSIDES/DOCUSATE COMBO (SENNA PLUS) TABLET (UD) PO PRN (22:00)
--- NOTE | 2018-07-17 07:19 | DS ---
Physical Exam-PUBLIC RELATIONS STUDIES DIRECTOR Vital Signs: Vital Signs Temperature 97.7 F 07/16/18 20:39 Pulse Rate 83 07/16/18 20:39 Respiratory Rate 20 07/16/18 20:39 Blood Pressure 138/88 07/16/18 20:39 O2 Sat by Pulse Oximetry (%) 100 07/15/18 06:30 Constitutional: Yes: Well Nourished Eyes: Yes: Conjunctiva Clear HENT: Yes: Atraumatic Neck: Yes: Supple Cardiovascular: Yes: Regular Rate and Rhythm Respiratory: Yes: Regular Gastrointestinal: Yes: Normal Bowel Sounds External Genitalia: Yes: Normal Vaginal Exam: Yes: Normal Cervix: Yes: Normal Uterus: Yes: Firm ....Post : Yes: Uterus firm, Moderate lochia serosa Neurological: Yes: Alert, Oriented ...Motor Strength: WNL Psychiatric: Yes: Alert, Oriented Labs: CBC, BMP 07/16/18 07:00 07/15/18 04:55 Delivery - Delivery Vaginal Delivery: Spontaneous Type of Anesthesia: None Episiotomy/Laceration: None EBL (cc): 300 Delivery, Single - Stages of Labor Date 1st Stage Initiatied: 07/15/18 Time 1st Stage Initiated: 04:15 Date 2nd Stage Initiated: 07/15/18 Time 2nd Stage Initiated: 05:05 Date of Delivery: 07/15/18 Time of Delivery: 05:07 Time Placenta Delivered: 05:09 - Condition of Transport Nurse/Quality Assurance Director Present: No Gender: Female Weight: 8 lb 9 oz Position: Left, OA Total Hours ROM (Hrs/Mins): 1m - 1 Minute Total Score: 9 5 Minutes Total Score: 9 - [place] Feeding Plan Initial Plan: Exclusive throughout hospitalization Discharge Summary Reason For Visit: LABOR Current Active Problems Pain during labor (Acute) Status post normal vaginal delivery (Acute) Procedures: Principal: Normal spontaneous vaginal delivery Hospital Course: Routine care Condition: Good - Instructions Diet, Activity, Other Instructions: Regular diet No douching, no sexual intercourse x 6 weeks F/U in clinic in 6 weeks Disposition: HOME - Home Medications Comprehensive Discharge Medication List: Ambulatory Orders Multivitamin/Iron/Folic Acid [Daily Vitamin Formula-Iron Tab] 1 each PO DAILY # 30 tablet 07/29/16 Nitrofurantoin Monohyd/M-Cryst [Macrobid -] 100 mg PO BID #20 capsule 06/13/17 Ibuprofen [Motrin -] 600 mg PO TID #21 tablet 06/15/17
[2018-07-17] MEDS: PRENATAL VITAMINS W/ FOLIC ACID TABLET (FP) PO SCH (09:48)
[2018-07-17] MEDS: FERROUS SO4 325 MG TABLET (FP) PO SCH (09:48)
[2018-07-17 10:00] VITALS: BP 116/76; PULSE 90; TEMP 98.4
== END 2018-07-17 13:30 | disposition home or self-care (01) | DRG 560 ==
LOC: JDEL 04:15 → JLDR 04:40 → J3W 07:31
PROVIDERS: ADMIT Obstetrics & Gynecology; ATTEND Obstetrics & Gynecology
PROC: 10E0XZZ Delivery of Products of Conception, External Approach (ICD-10-PCS; principal; 2018-07-15)
DX: O80 Encounter for full-term uncomplicated delivery (principal); Z3A.39 39 weeks gestation of pregnancy; Z37.0 Single live birth
CPT/HCPCS: 36415; 59025; 59409; 80048; 85025; 85027; 85610; 85730; 86593; 86850; 86900; 86901; 87389; 90715

== ENCOUNTER 2020-11-21 07:45 | Inpatient (IN) | payer OTHER ==
[2020-11-21 09:14] VITALS: BMI 41.8
[2020-11-21] MEDS ORDERED: OXYTOCIN 30 UNITS in 0.9% NS 30 UNIT/500 ML INFUS.BAG IVPB SCH (09:30)
[2020-11-21] MEDS ORDERED: ELECTROLYTE-148 SOLN 1,000 ML IV SCH (09:30)
[2020-11-21] MEDS ORDERED: OXYTOCIN 30 UNITS in 0.9% NS 30 UNIT/500 ML INFUS.BAG IVPB ONE (09:39)
[2020-11-21 09:59] LABS: INR 0.94 (0.83-1.09); PROTHROMBIN TIME (PATIENT) 11.6 SEC (9.7-13.0)
[2020-11-21 10:02] LABS: ACTIVATED PTT 28.5 SECONDS (25.2-36.5)
[2020-11-21 10:04] LABS: BASO % 0.2 % (0-2.0); EOS % 0.4 % (0-4.5); HEMOGLOBIN 11.6 GM/dL (10.7-15.3); LYMPH % 16.6 % (8-40); MEAN CELL VOLUME 88.2 fl (80-96); MONO % 6.2 % (3.8-10.2); NEUT % 76.6 % (42.8-82.8); PLATELET COUNT 130 K/MM3 (134-434); RBC 3.86 M/mm3 (3.60-5.2); RDW 14.3 % (11.6-15.6); WHITE BLOOD COUNT 8.5 K/mm3 (4.0-10.0)
[2020-11-21 10:10] LABS: CALCIUM 8.7 mg/dL (8.5-10.1)
[2020-11-21 10:11] LABS: BLOOD UREA NITROGEN 10.2 mg/dL (7-18)
[2020-11-21 10:14] LABS: CREATININE 0.6 mg/dL (0.55-1.3)
[2020-11-21] MEDS ORDERED: NALOXONE HCL 0.4 MG/ML VIAL IVPUSH PRN (10:19)
[2020-11-21] MEDS ORDERED: FENTANYL/BUPIVACAINE/NS/PF - PCEA - 50 ML DISP.SYRIN EP ONE ×2 (10:20→16:09)
[2020-11-21] MEDS ORDERED: PCA PUMP NR ONE (10:20)
[2020-11-21] MEDS ORDERED: BUPIVACAINE HCL/PF 0.25% (2.5MG/ML) 10 ML VIAL ONE (10:22)
[2020-11-21] MEDS: FENTANYL/BUPIVACAINE/NS/PF - PCEA - 50 ML DISP.SYRIN EP SCH (10:40)
[2020-11-21] MEDS ORDERED: OXYTOCIN 20 UNITS in 0.9% NS 20 UNIT/1,000 ML INFUS.BAG IV ONE (17:20)
[2020-11-21] MEDS ORDERED: IBUPROFEN 600 MG TABLET (FP) PO ONE (18:13)
[2020-11-21] MEDS ORDERED: ACETAMINOPHEN 325 MG TABLET (FP) ONE (18:13)
[2020-11-21] MEDS: ACETAMINOPHEN 325 MG TABLET (FP) PO PRN (18:15)
[2020-11-21] MEDS: IBUPROFEN 600 MG TABLET (FP) PO PRN (18:15)
[2020-11-21] MEDS ORDERED: BISACODYL 10 MG SUPP.RECT RC PRN (18:30)
[2020-11-21] MEDS ORDERED: WITCH HAZEL 50% (TUCKS) 40 PAD/JAR PAD TP PRN (18:30)
[2020-11-21] MEDS ORDERED: BENZOCAINE 20% 57 GM BOTTLE TP PRN (18:30)
[2020-11-21] MEDS ORDERED: OXYTOCIN 20 UNITS in 0.9% NS 20 UNIT/1,000 ML INFUS.BAG IV SCH (18:30)
[2020-11-21] MEDS ORDERED: METHYLERGONOVINE MALEATE 0.2 MG/1 ML AMP IM PRN (18:30)
[2020-11-21] MEDS ORDERED: BENZOCAINE 28 GM HEMORRHOIDAL OINTMENT TP PRN (18:30)
[2020-11-22 09:43] LABS: BASO % 0.2 % (0-2.0); EOS % 0.8 % (0-4.5); HEMATOCRIT 35.5 % (32.4-45.2); HEMOGLOBIN 11.9 GM/dL (10.7-15.3); LYMPH % 15.4 % (8-40); MCH 30.1 pg (25.7-33.7); MCHC 33.6 g/dl (32.0-36.0); MEAN CELL VOLUME 89.5 fl (80-96); MEAN PLT VOLUME 12.4 fl (7.5-11.1); MONO % 5.1 % (3.8-10.2); NEUT % 78.5 % (42.8-82.8); PLATELET COUNT 117 K/MM3 (134-434); RBC 3.96 M/mm3 (3.60-5.2); RDW 14.1 % (11.6-15.6); WHITE BLOOD COUNT 9.2 K/mm3 (4.0-10.0)
[2020-11-22] MEDS: PRENATAL VITAMINS W/ FOLIC ACID TABLET (FP) PO SCH (09:43)
[2020-11-22] MEDS ORDERED: SENNOSIDES/DOCUSATE COMBO (SENNA PLUS) TABLET (UD) PO PRN (18:30)
[2020-11-23] MEDS: ACETAMINOPHEN 325 MG TABLET (FP) PO PRN (06:35)
[2020-11-23] MEDS: IBUPROFEN 600 MG TABLET (FP) PO PRN (06:39)
[2020-11-23] MEDS: FENTANYL/BUPIVACAINE/NS/PF - PCEA - 50 ML DISP.SYRIN EP SCH ×2 (07:24→09:51)
[2020-11-23] MEDS: PRENATAL VITAMINS W/ FOLIC ACID TABLET (FP) PO SCH (09:50)
[2020-11-23 10:17] VITALS: BP 133/87; PULSE 80; TEMP 97.9
== END 2020-11-23 12:40 | disposition home or self-care (01) | DRG 560 ==
LOC: JLDR 07:45 → J3W 19:45
PROVIDERS: ADMIT Obstetrics & Gynecology; ATTEND Obstetrics & Gynecology
PROC: 10E0XZZ Delivery of Products of Conception, External Approach (ICD-10-PCS; principal; 2020-11-21)
PROC: 3E033VJ Introduction of Other Hormone into Peripheral Vein, Percutaneous Approach (ICD-10-PCS; 2020-11-21)
DX: O24.424 Gestational diabetes mellitus in childbirth, insulin controlled (principal); O99.214 Obesity complicating childbirth; E66.01 Morbid (severe) obesity due to excess calories; Z86.59 Personal history of other mental and behavioral disorders; Z3A.39 39 weeks gestation of pregnancy; Z37.0 Single live birth
CPT/HCPCS: 36415; 59025; 59409; 80048; 82962; 85025; 85610; 85730; 86780; 86850; 86900; 86901; G0463-25